=== PATIENT | male | born 1980 | race Hispanic/Latino ===

== ENCOUNTER 2019-02-20 13:32 | Emergency (ER) | payer SELFPAY ==
--- NOTE | 2019-02-20 14:43 | RAD REPORT ---
EXAM DESCRIPTION: Richelle Single View02/20/2019 2:28 pm CLINICAL HISTORY: Chest pain COMPARISON: 2014 FINDINGS: The lungs appear clear of acute infiltrate. The heart is normal size IMPRESSION: No acute abnormalities displayed
[2019-02-20 14:50] LABS: Absolute Lymphocytes (CBC) 1.1 K/uL (0.7-4.9); Basophils % 0.4 % (0-1.3); Hematocrit 52.1 % (39.6-49.0); Lymphocytes % 11.9 % (15.3-44.8); MPV 8.2 fL (7.6-11.3); RBC Red Blood Cell Count 6.11 M/uL (4.33-5.43)
--- NOTE | 2019-02-20 14:52 | EKG ---
Test Date: 2019-02-20 Test Time: 14:15:00 Order Expediter: SAGAR MEASUREMENT RESULTS: Intervals: Rate: 74 [place]: 146 QRSD: 106 QT: 388 QTc: 430 [place]: P: 71 [place]: 146 QRS: 95 T: 48 INTERPRETIVE STATEMENTS: Normal sinus rhythm Rightward axis Nonspecific T wave abnormality Abnormal ECG Compared to ECG 05/16/2015 18:00:58 Right-axis deviation now present T-wave abnormality now present Electronically Signed On 02-20-19 14:52:07 CDT by Ciro Licea
[2019-02-20 14:56] LABS: Protime INR 1.05
[2019-02-20 15:08] LABS: ALT/SGPT 55 U/L (12-78); AST/SGOT 22 U/L (15-37); Albumin 4.2 g/dL (3.4-5.0); Alkaline Phosphatase 66 U/L (45-117); BUN Blood Urea Nitrogen 15 mg/dL (7-18); Bicarbonate 26 mmol/L (21-32); Bilirubin Direct 0.1 mg/dL (0-0.2); Bilirubin Total 0.5 mg/dL (0.2-1.0); Glucose Level 114 mg/dL (74-106); Magnesium 2.5 mg/dL (1.8-2.4); NT PRO-BNP 9 pg/mL (<125); Potassium 3.7 mmol/L (3.5-5.1); Protein, Total 8.2 g/dL (6.4-8.2); Sodium Level 138 mmol/L (136-145); Troponin (Emerg Dept Use Only) < 0.02 ng/mL (0.0-0.045)
--- NOTE | 2019-02-20 18:12 | ER ---
Nurse's Notes [facility] Name: Ted Rae Age: 39 yrs Sex: Male : 1980 Arrival Date: 02/20/2019 Time: 13:35 Bed External Waiting Private MD: Diagnosis: Chest pain, unspecified Presentation: 02/20 13:38 Presenting complaint: Sent from [facility] for chest pain and abnormal hb EKG. Pt reports intermittent substernal chest pressure and SOB x 1 week. Symptoms started after 2nd dose of Vardenafil. Transition of care: patient was not received from another setting of care. Onset of symptoms was February 05, 2019. Risk Assessment: Do you want to hurt yourself or someone else? Patient reports no desire to harm self or others. Initial Sepsis Screen: Does the patient meet any 2 criteria? No. Patient's initial sepsis screen is negative. Does the patient have a suspected source of infection? No. Patient's initial sepsis screen is negative. Care prior to arrival: None. 13:38 Method Of Arrival: Ambulatory hb 13:38 Acuity: JOSE 3 hb 13:47 Note Maryellen Jarakely #[id number]. hb Historical: - Allergies: 13:47 No Known Allergies; hb - PSHx: 13:47 None; hb - Immunization history:: Adult Immunizations up to date. - Social history:: Smoking status: Patient/guardian denies using tobacco. - Ebola Screening: : No symptoms or risks identified at this time. Vital Signs: 13:47 BP 137 / 77; Pulse 76; Resp 16; Temp 98.4; Pulse Ox 100% on R/A; Weight 78.47 kg; hb Height 5 ft. 9 in. (175.26 cm); Pain 3/10; 13:47 Body Mass Index 25.55 (78.47 kg, 175.26 cm) hb ED Course: 13:35 Patient arrived in ED. mr 13:46 Triage completed. hb 13:47 Arm band placed on. hb 13:52 Yordan Levy PA is PHCP. jr8 13:52 Carlos Real MD is Attending Physician. jr8 14:21 EKG done, by hydroelectric plant technician. reviewed by Yordan CAMARGO. sm3 14:28 XRAY Chest (1 view) In Process Unspecified. EDMS 14:36 Fredy James, RN is Primary Nurse. 14:37 Initial lab(s) drawn, by me, sent to lab. Inserted saline lock: 20 gauge in right lt1 antecubital area, using aseptic technique. Administered Medications: No medications were administered Outcome: 18:11 Discharge ordered by . iw 18:12 Patient left the ED. iw Signatures: Dispatcher [employer] EDSD Fredy James, RN RN Clay Ivana Nena Salinas RN RN Yordan Levy PA PA jr8 Sara Small RN RN hb Montes, Shakira sm3 Boogie, Nina lt1
--- NOTE | 2019-02-20 18:12 | EDPHYS ---
Physician Documentation [facility] Name: Ted Rae Age: 39 yrs Sex: Male : 1980 Arrival Date: 02/20/2019 Time: 13:35 Bed External Waiting Private MD: ED Physician Carlos Real HPI: 02/20 14:07 This 39 yrs old Male presents to ER via Ambulatory with complaints of Abnormal jr8 EKG. 14:07 The patient or guardian reports chest pain that is located primarily in the substernal jr8 area. The pain does not radiate. Associated signs and symptoms: Pertinent negatives: diaphoresis, headache, lightheadedness, nausea, near syncope. The chest pain is described as a pressure. Duration: The patient or guardian reports multiple episodes. Modifying factors: the symptoms are aggravated by exertion. Severity of pain: At its worst the pain was moderate in the emergency department the pain has improved. pt reports that he has been having pressure like chest pain since about 3 days ago after taking a medication for erectile dysfunction, states he was seen at pcp on Sunday and put on amoxicillin and prednisone for unrelated problem with throat but today went in and they told him that his ECG was abnormal and to come to the ER. Historical: - Allergies: 13:47 No Known Allergies; hb - PSHx: 13:47 None; hb - Immunization history:: Adult Immunizations up to date. - Social history:: Smoking status: Patient/guardian denies using tobacco. - Ebola Screening: : No symptoms or risks identified at this time. ROS: 14:07 Constitutional: Negative for fever, chills, and weight loss, Eyes: Negative for injury, jr8 pain, redness, and discharge, ENT: Negative for injury, pain, and discharge, Neck: Negative for injury, pain, and swelling, Respiratory: Negative for shortness of breath, cough, wheezing, and pleuritic chest pain, Abdomen/GI: Negative for abdominal pain, nausea, vomiting, diarrhea, and constipation, Back: Negative for injury and pain, MS/Extremity: Negative for injury and deformity, Neuro: Negative for headache, weakness, numbness, tingling, and seizure. 14:07 Cardiovascular: Positive for chest pain, Negative for edema, orthopnea, paroxysmal nocturnal dyspnea. Exam: 14:09 Constitutional: This is a well developed, well nourished patient who is awake, alert, jr8 and in no acute distress. Head/Face: Normocephalic, atraumatic. Eyes: Pupils equal round and reactive to light, extra-ocular motions intact. Lids and lashes normal. Conjunctiva and sclera are non-icteric and not injected. Cornea within normal limits. Periorbital areas with no swelling, redness, or edema. ENT: Mucous membranes moist. Neck: Supple, full range of motion without nuchal rigidity, or vertebral point tenderness. No Meningismus. Chest/axilla: Normal chest wall appearance and motion. Nontender with no deformity. No lesions are appreciated. Cardiovascular: Regular rate and rhythm with a normal S1 and S2. No gallops, murmurs, or rubs. Normal PMI, no JVD. No pulse deficits. Respiratory: Lungs have equal breath sounds bilaterally, clear to auscultation No rales, rhonchi or wheezes noted. No increased work of breathing, no retractions or nasal flaring. Abdomen/GI: Soft, non-tender, with normal bowel sounds. No distension or tympany. No guarding or rebound. No evidence of tenderness throughout. Back: No spinal tenderness. No costovertebral tenderness. Full range of motion. Skin: Warm, dry with normal turgor. Normal color with no rashes, no lesions, and no evidence of cellulitis. MS/ Extremity: Pulses equal, no cyanosis. Neurovascular intact. Full, normal range of motion. Neuro: Awake and alert, GCS 15, oriented to person, place, time, and situation. Cranial nerves II-XII grossly intact. Motor strength 5/5 in all extremities. Sensory grossly intact. Cerebellar exam normal. Normal gait. Vital Signs: 13:47 BP 137 / 77; Pulse 76; Resp 16; Temp 98.4; Pulse Ox 100% on R/A; Weight 78.47 kg; hb Height 5 ft. 9 in. (175.26 cm); Pain 3/10; 13:47 Body Mass Index 25.55 (78.47 kg, 175.26 cm) hb MDM: 13:52 Patient medically screened. [facility] 02/20 14:07 Order name: Basic Metabolic Panel; Complete Time: 15:40 [facility] 02/20 14:07 Order name: CBC with Diff; Complete Time: 15:40 jr02/20 14:07 Order name: LFT's; Complete Time: 15:40 02/20 14:07 Order name: Magnesium; Complete Time: 15:40 02/20 14:07 Order name: NT PRO-BNP; Complete Time: 15:40 02/20 14:07 Order name: PT-INR; Complete Time: 15:40 02/20 13:53 Order name: EKG; Complete Time: 13:53 02/20 13:53 Order name: EKG - Nurse/Tech; Complete Time: 14:36 02/20 14:07 Order name: Troponin (emerg Dept Use Only); Complete Time: 15:40 02/20 14:07 Order name: XRAY Chest (1 view); Complete Time: 15:40 02/20 14:07 Order name: Cardiac monitoring; Complete Time: 14:36 02/20 14:07 Order name: IV Saline Lock; Complete Time: 14:36 02/20 14:07 Order name: Labs collected and sent; Complete Time: 14:36 02/20 14:07 Order name: O2 Per Protocol; Complete Time: 14:36 02/20 14:07 Order name: O2 Sat Monitoring; Complete Time: 14:36 Administered Medications: No medications were administered Disposition: 02/21 09:25 Co-signature as Attending Physician, Carlos Real MD I agree with the assessment and kdr plan of care. Disposition: 02/20/19 18:11 Discharged to Home. Impression: Chest pain, unspecified. - Condition is Stable. - Medication Reconciliation Form, Thank You Letter, Antibiotic Education, Prescription Opioid Use form. Signatures: Dispatcher [employer] EDNV Carlos Real MD MD [facility] Nena Salinas RN RN Yordan Levy PA PA jr8 Sara Small RN RN Corrections: (The following items were deleted from the chart) 02/20 18:12 18:11 02/20/2019 18:11 Discharged to Home. Impression: Chest pain, unspecified. iw Condition is Stable. Forms are Medication Reconciliation Form, Thank You Letter, Antibiotic Education, Prescription Opioid Use. iw
[2019-02-20 19:06] VITALS: BP 137/77; TEMP 98.4; O2SAT 100
== END 2019-02-20 18:12 | disposition home or self-care (01) ==
LOC: ER 13:32
DX: R07.9 Chest pain, unspecified (principal)
CPT/HCPCS: 36415; 71045; 80048; 80076; 83735; 83880; 84484; 85025; 85610; 93005; 99284